=== PATIENT | male | born 1995 | race Caucasian/White ===

== ENCOUNTER 2018-12-06 07:37 | Emergency (ER) | payer OTHER ==
[2018-12-06 07:46] VITALS: BP 134/67
--- NOTE | 2018-12-06 07:56 | ED Physician Documentation ---
History of Present Illness - Stated complaint Stated Complaint: R EYE IRRITATION - Chief complaint Chief Complaint: Heent - History obtained from History obtained from: Patient - Additonal information Additional information: Patient is a previously healthy 23-year-old male who does not wear contacts or glasses presenting with right eye irritation over the past several hours. Patient believes it may have started last night with mild purulent drainage from the right eye, but worsened this morning with matting, continued drainage, and slight redness to the eye. Patient denies any significant pain or itchiness, as well as any changes to vision. Patient has no complaints to the left eye. Patient also denies any ear, nose, or throat complaints, although he states he has recently been getting over a cold. Patient denies any other GI complaints.No other improving or worsening factors noted. Review of Systems Constitutional: denies: Fever Eyes: reports: Discharge, Irritation. denies: Loss of vision PD PAST MEDICAL HISTORY - Past Medical History Past Medical History: No - Past Surgical History Past Surgical History: No - Present Medications Home Medications: Ambulatory Orders Medication Instructions Recorded Confirmed Polymyxin B Sulf/Trimethoprim 1 - 2 drops OP Q6HR 7 Days drops 12/06/18 [Polymyxin B-Tmp Eye Drops] - Allergies Allergies/Adverse Reactions: Allergies Allergy/AdvReac Type Severity Reaction Status Date / Time No Known Drug Allergies Allergy Verified 12/06/18 07:46 - Social History Does the pt smoke?: No Smoking Status: Never smoker PD ED PE NORMAL - Vitals Vital signs reviewed: Yes - General General: Alert and oriented X 3, No acute distress, Well developed/nourished - HEENT HEENT: Atraumatic, PERRL (No nystagmus. Gross visual acuity intact. Left eye unremarkable. Right eye has extremely mild conjunctival injection mostly in the lateral aspect with no drainage present. No swelling or other changes to periorbital area or eyelids.), EOMI, Moist mucous membranes - Respiratory Respiratory: No respiratory distress - Derm Derm: Normal color, Warm and dry, No rash - Extremities Extremities: No deformity - Neuro Neuro: Alert and oriented X 3, No motor deficit, No sensory deficit - Psych Psych: Normal mood, Normal affect Results - Vitals Vitals: Vital Signs - 24 hr 12/06/18 07:44 Temperature 36.7 C Heart Rate 62 Respiratory 18 Rate Blood Pressure 134/67 H O2 Saturation 96 Oxygen O2 Source Room air PD MEDICAL DECISION MAKING - ED course Complexity details: considered differential, d/w patient, d/w family ED course: Patient presenting with extremely mild evidence of conjunctivitis to the right eye. Patient reports that he was recently getting over cold symptoms or URI and likely feel this could have been viral causing today's conjunctivitis. Spoke with patient about viral versus bacterial etiologies and agreed to treat with antibiotics in case of bacterial component. Do not find evidence of other systemic infection, localized infection or other concerns on exam. Also discussed other hygiene recommendations, supportive cares, return precautions and follow-up. Patient voiced understanding and is comfortable with discharge plan. Departure - Departure Disposition: 01 Home, Self Care Clinical Impression: Conjunctivitis Qualifiers: Conjunctivitis type: acute Acute conjunctivitis type: unspecified Laterality: right Qualified Code(s): H10.31 - Unspecified acute conjunctivitis, right eye Condition: Good Instructions: ED Conjunctivitis Nonspecific Follow-Up: MARSHA BALL MD [Primary Care Provider] - Within 3 Days Prescriptions: Polymyxin B Sulf/Trimethoprim [Polymyxin B-Tmp Eye Drops] 1 - 2 drops OP Q6HR 7 Days drops Comments: Please use eyedrops as prescribed to treat conjunctivitis. Practice good hand hygiene as well as keeping eye clean. Recommend changing towels, linens, and others to avoid reinfection. Follow-up with primary care physician next 2 to 3 days and return to ED sooner if experience worsening symptoms or other concerns.
== END 2018-12-06 08:12 | disposition home or self-care (01) ==
LOC: ED 07:37
DX: H10.31 Unspecified acute conjunctivitis, right eye (principal)
CPT/HCPCS: 99283

== ENCOUNTER 2021-01-17 09:11 | Outpatient (CLI) | payer OTHER ==
--- NOTE | 2021-01-17 10:24 | SLEEP CARE CONSULTATION ---
Information from patient questionnaire entered by Gail Oden. I have reviewed and concur with the information entered by Gail Oden. This document represents the service I personally performed and the decisions made by me, Joy Delgado ARNP. History of Present Illness Service Date and Time: 01/17/2021 0911 Reason for Visit: New patient Chief Complaint: reports: Unrefreshed sleep, Snoring, Excessive daytime sleepiness, Observed pauses in breathing Date of Onset: 4 years Usual bedtime: 0930 Time it takes to fall asleep: 15 - 30 min Snores at night: Yes Observed to quit breathing while asleep: Yes Sleeps alone due to snoring: No Number of times waking at night: 1 - 2 Reasons for waking at night: reports: Other (Unknown reason) Toss, Turn, or Twitch while sleeping: Yes Recalls having dreams: No Usually gets out of bed at: 0505 Feels refreshed in the morning: No Morning headache: No Sleepy or fatigued during the day: Yes Ever fallen asleep while driving: No (no drowsy driving) Takes day naps: Yes (usually on the weekend) Dreams during day naps: No Prior sleep studies: No Additional HPI information: I had the pleasure of seeing ELIZA PANIAGUA today regarding the possibility of him having a sleep disorder. His current complaints are excessive daytime sleepiness, observed pauses in breathing, snoring and unrefreshed sleep. He states his will wake him up because he has been snoring really loud and when he has stopped breathing at night. He states that his snoring has improved with the purchase of a new mattress. He decided to talked to his mother about sleep apnea because she has been diagnosed with sleep apnea and is on a Pap machine. His grandmother also has sleep apnea and is being treated. He states that he wakes up not feeing refreshed most mornings and is tired throughout the day. He will get a full night's sleep and still fall asleep after sitting down at home or at work before lunch. He denies any drowsy driving or accidents. He supplements with caffeine to keep awake during the day. He denies morning headaches. 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 Patient is and lives in [place]. Have you smoked in the past 12 months: No (Vape 3x a day) Alcohol use: Yes Alcohol amount and frequency: 1 - 2 beers on weekends Caffeine use: Yes Caffeine amount and frequency: 1 cup coffee daily Family History Family history of sleep disordered breathing: Yes Family Hx Sleep Apnea: Mother: Snoring, Sleep apnea - Treated, Grandparent: Snoring, Sleep apnea - Treated Allergies and Home Medications Drug allergies reviewed: Yes (NKDA) Home medication list reviewed: Yes Allergy and home medication list: Clobetasol cream for eczema Review of Systems Cardiovascular: denies: high blood pressure Gastrointestinal: reports: heartburn Neurological: reports: headaches. denies: head trauma Psychiatric: denies: anxiety, depression, mood disorder Ear/Nose/Throat: reports: wisdom teeth removed (removed 2 of them). denies: injury to nose, tonsillectomy Endocrine: denies: thyroid disease Immunologic: reports: allergies to food or environment (cats, seasonal allergies) Physical Exam Blood Pressure: 118/78 Cuff size: long Heart Rate: 53 O2 Saturation: 99 Height: 6 ft 2 in Weight: 233 lb 3.2 oz Body Mass Index: 29.9 BMI Classification: Overweight Neck circumference: 16.6 (inches) Nostrils: patent to airflow Mouth and throat: narrow oropharynx Soft palate: long Hard palate: arched Uvula: normal Uvula visualization: 50% Mallampati Class II Tongue: enlarged in size with teeth nur on lateral edges Tonsils: 1+ Neck: normal w/o lymphadenopathy or thyromegaly Heart: regular rate and rhythm Lungs: clear bilaterally Impression and Plan 1. Suspected Obstructive Sleep Apnea-Hypopnea Syndrome, as suggested by a history of loud and irregular snoring, observed cessation of breath while asleep, unrefreshed sleep, cognitive impairment, and excessive daytime sleepiness. Narrow oropharynx and obesity are common predisposing factors for obstructive sleep apnea-hypopnea syndrome. I recommend proceeding to polysomnography to confirm the diagnosis and to assess severity. If the patient has significant sleep disordered breathing, a manual CPAP titration study will also be performed to find the optimal treatment pressure. I informed the patient of what the sleep studies involve and after some discussion, obtained agreement to proceed. The pathophysiology of obstructive sleep apnea-hypopnea syndrome was discussed with the patient and health risks of cardiovascular and cerebrovascu lar disease if not treated. AAS brochure for obstructive sleep apnea-hypopnea syndrome given and reviewed. Risks of drowsy driving discussed in detail and patient advised to avoid long distance driving and to caul fat puller at the first sign of drowsiness. Patient agreed to plan. * Schedule polysomnography +- manual CPAP titration study and return in 1-2 weeks after the study to discuss result and initiate therapy. * Avoid long distance driving or driving when feeling sleepy. * Avoid alcohol, sedative and muscle relaxant around bedtime. * Attempt to lose weight. * Review instructions provided by trained office staff on how to prepare for the sleep study. * Return for follow-up after sleep study completed. Counseling Topics: Weight loss health impact Visit Type: In Office Time Spent with Patient (minutes): 30 Provider Statement: I spent 100% of the Face to Face Visit with the patient with greater than 50% spent counseling the patient and coordination of care.
[2021-01-17 10:25] VITALS: BP 118/78
== END 2021-01-17 09:12 | disposition home or self-care (01) ==
LOC: SC 09:11
PROVIDERS: ATTEND Nurse Practitioner Family
DX: R06.83 Snoring (principal); R06.81 Apnea, not elsewhere classified; G47.8 Other sleep disorders; R41.89 Other symptoms and signs involving cognitive functions and awareness; G47.10 Hypersomnia, unspecified
CPT/HCPCS: 99203; 99212

== ENCOUNTER 2021-01-26 13:50 | Outpatient (CLI) | payer OTHER | END 2021-01-26 13:51 | disposition home or self-care (01) | LOC: SC 13:50 | PROVIDERS: ATTEND Nurse Practitioner Family | DX: R06.83 Snoring (principal); G47.8 Other sleep disorders; G47.10 Hypersomnia, unspecified | CPT/HCPCS: 95806 ==

== ENCOUNTER 2021-02-06 14:26 | Outpatient (CLI) | payer OTHER ==
--- NOTE | 2021-02-06 14:44 | SLEEP CARE CONSULTATION ---
Information from patient questionnaire entered by Judit Castillo. I have reviewed and concur with the information entered by Judit Castillo. This document represents the service I personally performed and the decisions made by , Joy Delgado ARNP. History of Present Illness Service Date and Time: 02/06/20211425 Initial [place] Sleepiness Scale score: 20 (in 2020) Current [place] Sleepiness Scale score: 18 Additional HPI information: ELIZA PANIAGUA returns for follow up and results of the recently performed home sleep study. The patient was informed of the following findings: No significant sleep disordered breathing with an average AHI of 2.3 and jhony oxygen saturation of 93%. He did, however, have an elevated AHI of 5.9 during supine sleep. I explained the pathophysiology behind obstructive sleep apnea. Patient does not have sleep apnea and was advised how weight gain could increase the risk of developing sleep apnea in the future. I strongly encouraged the patient to lose weight. Patient does not have significant sleep disordered breathing but has elevated AHI in supine position so advised positional therapy. Methods to achieve positional management therapy were discussed; such as, positioning with pillows, wearing a T-shirt with tennis balls sewn into the back, Rematee shirt, Zzomba belt and Slumberbump belt. Patient has mild snoring. Snoring can be reduced by weight loss. Weight loss is best achieved with diet consult. Patient instructed to contact PCP for referral. Snoring can also be treated with an oral appliance from a dentist. Advised to check insurance coverage. In addition, an ENT evaluation can be do to see if other treatment is indicated. Patient counseled not drink alcohol less than 4 hours before bedtime as it can increase snoring and apnea. Patient was cautioned about risks of drowsy driving until sleepiness symptoms resolve. Sleep Study - Results Type of Sleep Study: Home sleep study Prior sleep studies: No Polysomnography/Home Sleep Study results: Physician Impression: The quality of the study is good. The length of the study is adequate (> 240 minutes). Please also see the tabulated and graphic data. 1. No significant sleep disordered breathing, with an AHI of 2.3/hr and jhony SaO2 of 93%. During the study, the patient had 17 apneas (17 obstructive, 0 central, 0 mixed) and 0 hypopneas. The longest episode lasted 42.5 seconds. The few respiratory events occurred almost exclusively during supine sleep (supine AHI was 5.9 and non-supine, 1.23). Allergies and Home Medications Home medication list reviewed: Yes (Clybetasol for eczema) Review of Systems Review of systems same as previous: Yes (no changes) Physical Exam Heart Rate: 68 O2 Saturation: 98 Height: 6 ft 2 in Weight: 225 lb Body Mass Index: 28.8 BMI Classification: Overweight Impression and Plan Snoring but no significant sleep disordered breathing. He does have a mildly elevated supine AHI of 5.9 and should avoid sleeping supine to reduce apneas. Patient voiced understanding. Patient advised that often weight loss will reduce snoring as well as apnea risk. An oral appliance can also be used for snoring. This would require a dental consultation. Patient cautioned not to use other online appliances as can cause bite issues. A list of accredited dentists in [facility] and one local dentist who makes oral appliances is available in office. Patient is advised to check if insurance will cover. An ENT consult can also be helpful to determine if any other treatment is an option. * Attempt to lose weight * Avoid supine sleep * Avoid alcohol consumption near bedtime * The patient is cautioned about driving until sleepiness is completely resolved. * Return as needed. Counseling Topics: Weight loss health impact Visit Type: In Office Time Spent with Patient (minutes): 13 Provider Statement: I spent 100% of the Face to Face Visit with the patient with greater than 50% spent counseling the patient and coordination of care.
== END 2021-02-06 14:27 | disposition home or self-care (01) ==
LOC: SC 14:26
PROVIDERS: ATTEND Nurse Practitioner Family
DX: R06.83 Snoring (principal); E66.3 Overweight; Z68.28 Body mass index [BMI] 28.0-28.9, adult
CPT/HCPCS: 99212

== ENCOUNTER 2022-12-13 06:20 | Day surgery (SDC) | payer OTHER ==
[2022-12-13] MEDS ORDERED: LACTATED RINGERS 1,000 ML IV ONE (06:23)
--- NOTE | 2022-12-13 06:57 | ANESTHESIA ---
Pre-Anesthesia VS, & Labs - Diagnosis irregular bowel habits - Procedure colonoscopy Vital Signs: Temp Pulse Resp BP Pulse Ox O2 Flow Rate 36.5 C 69 10 L 134/80 H 97 12/13/22 06:25 12/13/22 06:25 12/13/22 06:25 12/13/22 06:25 12/13/22 06:25 Height: 6 ft 2 in Weight (kg): 102 kg Body Mass Index: 28.8 BMI Classification: Overweight - NPO >8 hours - Lab Results Lab results reviewed: Yes Home Medications and Allergies Home Medications: Ambulatory Orders Atomoxetine HCl [Strattera] 1 cap PO DAILY 12/13/22 Fexofenadine [Dolly] 180 mg PO DAILY 12/13/22 Meloxicam 1 tab PO DAILY 12/13/22 Omeprazole 20 mg PO DAILY 12/13/22 Atomoxetine HCl [Strattera] 1 cap PO DAILY 12/13/22 Fexofenadine [Dolly] 180 mg PO DAILY 12/13/22 Meloxicam 1 tab PO DAILY 12/13/22 Omeprazole 20 mg PO DAILY 12/13/22 Allergies/Adverse Reactions: Allergies Allergy/AdvReac Type Severity Reaction Status Date / Time No Known Drug Allergies Allergy Verified 12/13/22 06:41 Anes History & Medical History - Anesthetic History Anesthesia Complications: reports: No previous complications Family history of Anesthesia Complications: Denies Family history of Malignant Hyperthermia: Denies - Medical History Cardiovascular: reports: None Pulmonary: reports: None Gastrointestinal: reports: GERD Urinary: reports: None Musculoskeletal: reports: None Endocrine/Autoimmune: reports: None Skin: reports: None Smoking Status: Current every day smoker (vape) Psychosocial: reports: Depression Exam General: Alert, Oriented x3, Cooperative Dental: WNL Mouth Opening: Greater than 4 Fingerbreadths Neck Mobility: Normal Mallampati classification: I Thyromental Distance: 4-6 cm Respiratory: Lungs clear Cardiovascular: Regular rate Plan Anesthesia Type: MAC Consent for Procedure(s) Verified and Reviewed: Yes Code Status: Attempt Resuscitation ASA classification: 2-Mild systemic disease Is this case an emergency?: No
--- NOTE | 2022-12-13 07:19 | HISTORY & PHYSICAL EXAMINATION ---
Chief Complaint - Chief Complaint Chief Complaint: here for colonoscopy History of Present Illness - History Obtained From Records Reviewed: yes History obtained from: pt Exam Limitations: none - History of Present Illness HPI Comment/Other: irregular bowel habits with frequent bms and occasional blood for months. History - Past Medical History Cardiovascular: reports: None Respiratory: reports: None Endocrine/Autoimmune: reports: None GI: reports: GERD : reports: None HEENT: reports: None Psych: reports: None Musculoskeletal: reports: None Derm: reports: None MRSA Hx?: No Meds/Allgy - Home Medications Home Medications: Ambulatory Orders Medication Instructions Recorded Confirmed Atomoxetine HCl [Strattera] 1 cap PO DAILY 12/13/22 12/13/22 Fexofenadine [Dolly] 180 mg PO DAILY 12/13/22 12/13/22 Meloxicam 1 tab PO DAILY 12/13/22 12/13/22 Omeprazole 20 mg PO DAILY 12/13/22 12/13/22 - Allergies Allergies/Adverse Reactions: Allergies Allergy/AdvReac Type Severity Reaction Status Date / Time No Known Drug Allergies Allergy Verified 12/13/22 06:41 Review of Systems - Other Findings Other Findings: 10 pt ros as above otherwise unremarkable Exam - Vital Signs Vital Signs: Vital Signs x48h Temp Pulse Resp BP Pulse Ox 12/13/22 06:25 36.5 C 69 10 L 134/80 H 97 - Physical Exam General Appearance: positive: No acute distress, Alert Eyes Bilateral: positive: PERRL, EOMI ENT: positive: No signs of dehydration Neck: positive: No JVD, Trachea midline Respiratory: positive: No respiratory distress Cardiovascular: positive: Regular rate & rhythm Abdomen: positive: No distention Neurologic/Psychiatric: positive: Oriented x3 Conclusion/Plan - Problem List (1) Irregular bowel habits Conclusion/Plan: plan colonoscopy with biopsies. rule out colitis parq held and consent obtained - Lab Results Lab results reviewed: Yes
[2022-12-13] MEDS ORDERED: PROPOFOL 500 MG/50 ML 500 MG/50 ML VIAL ONE (07:51)
[2022-12-13] MEDS ORDERED: LACTATED RINGERS 450 ML IV ONE (07:54)
[2022-12-13 08:24] VITALS: BP 107/67
--- NOTE | 2022-12-13 08:51 | ANESTHESIA POST OP EVALUATION ---
Anesthesia Post Eval - Post Anesthesia Eval Vitals: Last Vital Signs Temp 36.2 C L 12/13/22 08:18 Pulse 80 12/13/22 08:18 Resp 23 12/13/22 08:18 BP 107/67 12/13/22 08:18 Pulse Ox 100 12/13/22 08:18 O2 Flow Rate CV Function Including HR & BP: Stable Pain Control: Satisfactory Nausea & Vomiting: Negative Mental Status: Baseline Respiratory Status: Airway Patent Hydration Status: Satisfactory Anesthesia Complications: None
== END 2022-12-13 06:21 | disposition home or self-care (01) ==
LOC: SDS 06:20
PROVIDERS: ATTEND Surgery
PROC: 0DBL8ZX Excision of Transverse Colon, Via Natural or Artificial Opening Endoscopic, Diagnostic (ICD-10-PCS; 2022-12-13)
PROC: 0DBP8ZX Excision of Rectum, Via Natural or Artificial Opening Endoscopic, Diagnostic (ICD-10-PCS; 2022-12-13)
PROC: 0DBF8ZX Excision of Right Large Intestine, Via Natural or Artificial Opening Endoscopic, Diagnostic (ICD-10-PCS; 2022-12-13)
PROC: 0DBG8ZX Excision of Left Large Intestine, Via Natural or Artificial Opening Endoscopic, Diagnostic (ICD-10-PCS; 2022-12-13)
PROC: 0DBB8ZX Excision of Ileum, Via Natural or Artificial Opening Endoscopic, Diagnostic (ICD-10-PCS; principal; 2022-12-13 07:30)
DX: R19.4 Change in bowel habit (principal); K92.1 Melena; K64.9 Unspecified hemorrhoids; F17.290 Nicotine dependence, other tobacco product, uncomplicated
CPT/HCPCS: 45380; J7120

== ENCOUNTER 2023-02-11 16:32 | Emergency (ER) | payer OTHER ==
[2023-02-11 16:42] VITALS: BP 123/62; O2SAT 98
--- NOTE | 2023-02-11 17:25 | ED Physician Documentation ---
PD HPI WOUND RECHECK - Stated complaint Stated Complaint: SPIDER BITE - Chief complaint Chief Complaint: Wound - Histroy obtained from History obtained from: Patient (He noticed what he thought was some sort of bite on the inferior right buttock last night. No fevers or chills. No history of MRSA.) PD PAST MEDICAL HISTORY - Past Medical History Cardiovascular: None Respiratory: None Endocrine/Autoimmune: None GI: GERD : None HEENT: None Psych: None Musculoskeletal: None Derm: None - Past Surgical History Past Surgical History: No - Present Medications Home Medications: Ambulatory Orders Medication Instructions Recorded Confirmed Atomoxetine HCl [Strattera] 1 cap PO DAILY 12/13/22 12/13/22 Fexofenadine [Dolly] 180 mg PO DAILY 12/13/22 12/13/22 Meloxicam 1 tab PO DAILY 12/13/22 12/13/22 Omeprazole 20 mg PO DAILY 12/13/22 12/13/22 cephALEXin [Keflex] 500 mg PO Q6H #28 cap 02/11/23 - Allergies Allergies/Adverse Reactions: Allergies Allergy/AdvReac Type Severity Reaction Status Date / Time No Known Drug Allergies Allergy Verified 02/11/23 16:38 - Social History Does the pt smoke?: No Smoking Status: Current every day smoker (vape) PD ED PE NORMAL - Vitals Vital signs reviewed: Yes - General General: Alert and oriented X 3, No acute distress - Extremities Extremities: Other (Very small pointed abscess/pimple on the inferior right buttock with mild surrounding cellulitis.) - Neuro Neuro: Alert and oriented X 3, Normal speech Results - Vitals Vitals: Vital Signs - 24 hr 02/11/23 16:38 Temperature 36.5 C Heart Rate 76 Respiratory 16 Rate Blood Pressure 123/62 O2 Saturation 98 Oxygen O2 Source Room air Procedures - General procedure General procedure: The small pointed abscess inferior to the right buttock was opened up with an 18-gauge needle after ChloraPrep. A culture was obtained and bandage was placed. He tolerated this well. Departure - Departure Disposition: 01 Home, Self Care Clinical Impression: Abscess Condition: Good Record reviewed to determine appropriate education?: Yes Instructions: ED Abscess IandD Prescriptions: cephALEXin [Keflex] 500 mg PO Q6H #28 cap Comments: We are performing a wound culture, the results should be done in 48-72 hours. If antibiotic change is necessary we will call you. Return if worse in the meantime, especially if you develop increased pain, fevers, cannot keep down the medication. Otherwise follow-up with your physician in approximately 2-3 days. Forms: PCP List
== END 2023-02-11 17:45 | disposition home or self-care (01) ==
LOC: ED 16:32
DX: L02.31 Cutaneous abscess of buttock (principal); F17.290 Nicotine dependence, other tobacco product, uncomplicated; Z79.899 Other long term (current) drug therapy
CPT/HCPCS: 10060; 87070; 87205; 99283

== ENCOUNTER 2023-09-17 13:13 | Outpatient (CLI) | payer OTHER ==
--- NOTE | 2023-09-17 13:39 | Sleep Patient Instructions ---
Sleep Center Visit Summary - Patient Visit Information Reason for Visit: Annual Follow up - Patient Instructions Instructions Attached: Sleep Study Additional Instructions: You will be completing a sleep study, either an in-lab polysomnography (PSG) or home sleep study (HST). You will follow-up in the sleep care office after the sleep study is completed to hear the results and talk about therapy, if needed. You will be called by our office staff to schedule this appointment, but you may contact us with any questions. - Clinic Information Contact: Located within [facility] [address] [place] [id number] [email or web address] T: [phone]
--- NOTE | 2023-09-17 13:42 | SLEEP CARE CONSULTATION ---
Information from patient questionnaire entered by Talat Huang. I have reviewed and concur with the information entered by Talat Huang. This document represents the service I personally performed and the decisions made by me, Joy Delgado ARNP. History of Present Illness Service Date and Time: 09/17/2023 1313 Reason for follow up: annual ([id number]) Prior sleep studies: No Type of Sleep Study: Home sleep study HPI additional information: I had the pleasure of seeing ELIZA PANIAGUA today regarding the possibility of him having a sleep disorder. His current complaints are loud snoring, observed pauses in breathing, excessive daytime sleepiness and unrefreshed sleep. He feels that his snoring and daytime fatigue has worse since he was last seen here in 2020. The patient tells me that he normally goes to bed around 8:30 pm, and it takes him approximately 10-15 minutes to fall asleep. He has been told that he snores loudly and irregularly at night. He has been observed to stop breathing in his sleep. His bed partner has to sleep in another room due to the loudness of his snoring. He can recall waking up on the average of 1-2 times during the night. Most of the time he wakes up because of gasp for air and adjusting position. He has occasionally awakened for his own snoring, and having to gasp for air. There is a lot of tossing and turning in his sleep. Generally he can recall having dream s but it is rare. He usually wakes up at 0500 and does not feel refreshed. He usually does have a morning headache about a few times a month. During the day he complains of feeling sleepy and fatigued. He has never fallen asleep while driving nor has any accident due to sleepiness. He usually naps for couple hours on the weekends or 30-40 minutes at work. If he naps, upon falling asleep during the day he denies having vivid dreams. There is somniloquy (sleep talking) but no somnambulism (sleep walking). He reports having impaired concentration during the day. Sleep Study - Results Type of Sleep Study: Home sleep study Prior sleep studies: No Subjective Initial [place] Sleepiness Scale score: 20 (in 2020) Current [place] Sleepiness Scale score: 16 (09/17/23) Allergies and Home Medications Known drug allergies: No Drug allergies reviewed: Yes Home medication list reviewed: Yes (as listed) Allergy and home medication list: Allergies No Known Drug Allergies Allergy (Verified 02/11/23 16:38) Home Medications Medication Instructions Recorded Confirmed Last Taken Type Atomoxetine HCl [Strattera] 1 cap PO DAILY 12/13/22 09/17/23 12/12/22 History Meloxicam 1 tab PO DAILY 12/13/22 09/17/23 12/12/22 History Omeprazole 20 mg PO DAILY 12/13/22 09/17/23 12/12/22 History Sertraline [Zoloft] See Rx Instructions .ROUTE .COMPLEX 09/17/23 09/17/23 Unknown History Review of Systems Review of systems same as previous: No (lower back pain; GERD; anxiety; depression and ADHD) Physical Exam Vital signs obtained and entered by: TALAT Barksdale MA Blood Pressure: 130/76 (LEFT ARM) Cuff size: regular Heart Rate: 83 O2 Saturation: 98 Height: 6 ft 2 in Weight: 243 lb 9.6 oz Weight change since last visit: 18 lb gain Body Mass Index: 31.2 BMI Classification: Obese Impression and Plan 1. Suspected Obstructive Sleep Apnea-Hypopnea Syndrome, as suggested by a history of loud and irregular snoring, observed cessation of breath while asleep, gasping or choking in sleep, unrefreshed sleep, cognitive impairment, and excessive daytime sleepiness. I recommend proceeding to polysomnography to confirm the diagnosis and to assess severity. If the patient has significant sleep disordered breathing, a manual CPAP titration study will also be performed to find the optimal treatment pressure. I informed the patient of what the sleep studies involve and after some discussion, obtained agreement to proceed. The pathophysiology of obstructive sleep apnea-hypopnea syndrome was discussed with the patient and health risks of cardiovascular and cerebrovascular disease if not treated. Risks of drowsy driving discussed in detail and patient advised to avoid long distance driving and to tail puller at the first sign of drowsiness. Patient agreed to plan. * Schedule polysomnography * Avoid long distance driving or driving when feeling sleepy. * Avoid alcohol, sedative and muscle relaxant around bedtime. * Attempt to lose weight. * Review instructions provided by trained office staff on how to prepare for the sleep study. * Return for follow-up after sleep study completed. Counseling Topics: Weight loss health impact Follow up with Sleep Care in: other (follow up for sleep study results) Plan: PSG Visit Type: In Office Time Spent with Patient (minutes): 20 Provider Statement: I spent 100% of the Face to Face Visit with the patient with greater than 50% spent counseling the patient and coordination of care.
[2023-09-17 13:53] VITALS: BP 130/76; O2SAT 98
== END 2023-09-17 13:14 | disposition home or self-care (01) ==
LOC: SC 13:13
PROVIDERS: ATTEND Nurse Practitioner Family
DX: G47.33 Obstructive sleep apnea (adult) (pediatric) (principal); E66.9 Obesity, unspecified; Z68.31 Body mass index [BMI] 31.0-31.9, adult
CPT/HCPCS: 99212; 99213

== ENCOUNTER 2023-10-05 19:18 | Outpatient (CLI) | payer OTHER | END 2023-10-05 19:19 | disposition home or self-care (01) | LOC: SC 19:18 | PROVIDERS: ATTEND Nurse Practitioner Family | DX: G47.10 Hypersomnia, unspecified (principal); R06.83 Snoring; G47.8 Other sleep disorders; R41.89 Other symptoms and signs involving cognitive functions and awareness; R06.81 Apnea, not elsewhere classified | CPT/HCPCS: 95810 ==

== ENCOUNTER 2023-10-30 13:01 | Outpatient (CLI) | payer OTHER ==
--- NOTE | 2023-10-30 13:32 | Sleep Patient Instructions ---
Sleep Center Visit Summary - Patient Visit Information Reason for Visit: Sleep study follow up - Patient Instructions Instructions Attached: Sleep Study Home Monitor Additional Instructions: Your sleep study today was negative for significant sleep disordered breathing. However, because of your symptoms we are going to reorder an home sleep study for further information. You were found to have episodes of snoring. There are different ways to control snoring including weight loss, oral devices made by a dentist or surgical options through ENT specialist. You should not use oral devices that do not fit properly because they can affect your bite. You should also check insurance coverage of oral devices for snoring because they may not be cover well. You may obtain a referral to an ENT specialist through your primary provider. Follow-up after HST - Clinic Information Contact: [facility] [address] [place] [address] [email or web address] T: [phone]
--- NOTE | 2023-10-30 13:40 | SLEEP CARE CONSULTATION ---
Information from patient questionnaire entered by Cecille Huang. I have reviewed and concur with the information entered by Cecille Huang. This document represents the service I personally performed and the decisions made by , Joy Delgado ARNP. History of Present Illness Service Date and Time: 10/30/2023 1301 Initial [place] Sleepiness Scale score: 20 (in 2020) Current [place] Sleepiness Scale score: 17 (10/30/23) Additional HPI information: ELIZA PANIAGUA returns for follow up and results of the recently performed polysomnography. The patient was informed of the following findings: No significant sleep disordered breathing with an average AHI of 0.8 and jhony oxygen saturation of 90%. I explained the pathophysiology behind obstructive sleep apnea. Patient does not have sleep apnea and was advised how weight gain could increase the risk of developing sleep apnea in the future. I strongly encouraged the patient to lose weight. Patient has light to moderate snoring. Snoring can be reduced by weight loss. Weight loss is best achieved with diet consult. Patient instructed to contact PCP for referral. Snoring can also be treated with an oral appliance from a dentist. Advised to check insurance coverage. In addition, an ENT evaluation can be do to see if other treatment is indicated. Patient counseled not drink alcohol less than 4 hours before bedtime as it can increase snoring and apnea. Patient was cautioned about risks of drowsy driving until sleepiness symptoms resolve. Patient denies drowsy driving. Sleep Study - Results Type of Sleep Study: Polysomnography (COMPLETED 10/05/23) Prior sleep studies: No Polysomnography/Home Sleep Study results: IMPRESSION: The quality of the study is good. The patient had normal sleep efficiency. Except for mild sleep fragmentation, the sleep architecture was also normal. Respiratory monitoring showed no significant sleep disordered breathing (AHI = 0.8) or hypoxia (jhony oxygen saturation of 90%). The patient slept adequately in supine position (supine AHI = 0.4; non-supine = 2.00). Snore was light to moderate in intensity. There was no significant periodic leg movement of sleep. Cardiac rhythm was normal sinus rhythm without significant arrhythmia. No abnormal behavior (parasomnia) observed during the night. Allergies and Home Medications Known drug allergies: No Drug allergies reviewed: Yes Home medication list reviewed: Yes (Venlafaxine for anxiety/depression) Allergy and home medication list: Allergies No Known Drug Allergies Allergy (Verified 10/27/23 11:53) Review of Systems Review of systems same as previous: Yes (NO CHANGE) Physical Exam Vital signs obtained and entered by: CECILLE Barksdale MA Blood Pressure: 130/82 (LEFT ARM) Cuff size: long Heart Rate: 99 O2 Saturation: 99 Height: 6 ft 2 in Weight: 243 lb 9.6 oz Body Mass Index: 31.2 BMI Classification: Obese Impression and Plan 1. Suspected Obstructive Sleep Apnea-Hypopnea Syndrome, as suggested by a history of loud and irregular snoring, observed cessation of breath while asleep, gasping or choking in sleep, unrefreshed sleep, cognitive impairment, and excessive daytime sleepiness. Patient does not feel the sleep study was a good representation of his sleep. He felt he was awakened a lot when he normally would sleep solidly through the night. He states he can sleep for 7-8 hours or 9-10 hours and still feel tired. He has anxiety and depression but feels these are well controlled on his current medications. He does not feel his job or family situation is causing excessive stress. He has a regular get up and go to sleep schedule. He falls asleep quickly and does not remember waking up at night very often. His says she sees him stop breathing at night and snores loudly. I recommend proceeding to polysomnography/HST to see how he sleeps at home and to confirm the diagnosis and to assess severity. I obtained agreement t o proceed. The pathophysiology of obstructive sleep apnea-hypopnea syndrome was discussed with the patient and health risks of cardiovascular and cerebrovascular disease if not treated. Risks of drowsy driving discussed in detail and patient advised to avoid long distance driving and to bone char puller at the first sign of drowsiness. Patient agreed to plan. 2. Obesity, unspecified. Currently patients BMI is 31.2. Obesity increases the risk of apnea, CPAP pressure requirements and overall health risks especially cardiovascular and diabetes. Thus patient is advised to lose weight. * Schedule polysomnography/HST * Avoid long distance driving or driving when feeling sleepy. * Avoid alcohol, sedative and muscle relaxant around bedtime. * Attempt to lose weight. * Review instructions provided by trained office staff on how to prepare for the sleep study. * Return for follow-up after sleep study completed. Counseling Topics: Weight loss health impact Plan: HST and followup Visit Type: In Office Time Spent with Patient (minutes): 24 Provider Statement: I spent 100% of the Face to Face Visit with the patient with greater than 50% spent counseling the patient and coordination of care.
[2023-10-30 13:45] VITALS: BP 130/82; O2SAT 99
== END 2023-10-30 13:02 | disposition home or self-care (01) ==
LOC: SC 13:01
PROVIDERS: ATTEND Nurse Practitioner Family
DX: R06.83 Snoring (principal); R06.81 Apnea, not elsewhere classified; G47.8 Other sleep disorders; R41.89 Other symptoms and signs involving cognitive functions and awareness; G47.10 Hypersomnia, unspecified; E66.9 Obesity, unspecified; Z68.31 Body mass index [BMI] 31.0-31.9, adult
CPT/HCPCS: 99212; 99213

== ENCOUNTER 2023-11-27 08:46 | Outpatient (CLI) | payer OTHER | END 2023-11-27 08:47 | disposition home or self-care (01) | LOC: SC 08:46 | PROVIDERS: ATTEND Nurse Practitioner Family | DX: R06.83 Snoring (principal); G47.8 Other sleep disorders; R06.81 Apnea, not elsewhere classified; G47.10 Hypersomnia, unspecified; E66.9 Obesity, unspecified; Z68.31 Body mass index [BMI] 31.0-31.9, adult | CPT/HCPCS: 95806 ==

== ENCOUNTER 2023-12-05 13:57 | Outpatient (CLI) | payer OTHER ==
--- NOTE | 2023-12-05 14:19 | Sleep Patient Instructions ---
Sleep Center Visit Summary - Patient Visit Information Reason for Visit: Sleep study follow-up - Patient Instructions Instructions Attached: Snoring Tips Prevent Additional Instructions: Your sleep study today was negative for significant sleep disordered breathing. However, you did have elevated respiratory episodes when sleeping on your back. You should avoid sleeping on your back to control these respiratory episodes. You were found to have episodes of snoring. There are different ways to control snoring including weight loss, oral devices made by a dentist or surgical options through ENT specialist. You should not use oral devices that do not fit properly because they can affect your bite. You should also check insurance coverage of oral devices for snoring because they may not be cover well. You may obtain a referral to an ENT specialist through your primary provider. Follow-up as needed. - Clinic Information Contact: [facility] [address] [place] [address] [email or web address] T: [phone]
--- NOTE | 2023-12-05 14:21 | SLEEP CARE CONSULTATION ---
Information from patient questionnaire entered by Cecille Huang. I have reviewed and concur with the information entered by Cecille Huang. This document represents the service I personally performed and the decisions made by , Joy Delgado ARNP. History of Present Illness Service Date and Time: 12/05/2023 1357 Initial [place] Sleepiness Scale score: 20 (in 2020) Current [place] Sleepiness Scale score: 18 (12/05/23) Additional HPI information: ELIZA PANIAGUA returns for follow up and results of the recently performed home sleep study. The patient was informed of the following findings: No significant sleep disordered breathing with an average AHI of 4.9 and jhony oxygen saturation of 89%. I explained the pathophysiology behind obstructive sleep apnea. Patient does not have sleep apnea and was advised how weight gain could increase the risk of developing sleep apnea in the future. I strongly encouraged the patient to lose weight. Patient does not have significant sleep disordered breathing but has elevated AHI in supine position so advised positional therapy. Methods to achieve positional management therapy were discussed; such as, positioning with pillows, wearing a T-shirt with tennis balls sewn into the back, or commercially available products. Patient has mild snoring. Snoring can be reduced by weight loss. Weight loss is best achieved with diet consult. Patient instructed to contact PCP for referral. Snoring can also be treated with an oral appliance from a dentist. Advised to check insurance coverage. In addition, an ENT evaluation can be do to see if other treatment is indicated. Patient counseled not drink alcohol less than 4 hours before bedtime as it can increase snoring and apnea. Patient was cautioned about risks of drowsy driving until sleepiness symptoms resolve. Patient denies drowsy driving. Sleep Study - Results Type of Sleep Study: Home sleep study (COMPLETED 10/05/23 COMPLETED 11/27/23) Prior sleep studies: No Polysomnography/Home Sleep Study results: Physician Impression: The quality of the study is good. The length of the study is adequate (> 240 minutes). Please also see the tabulated and graphic data. 1. No significant sleep disordered breathing, with an AHI of 4.9/hr and jhony SaO2 of 89%. During the study, the patient had 31 apneas (31 obstructive, 0 central, 0 mixed) and 14 hypopneas. The longest episode lasted 72.5 seconds. The few respiratory events occurred almost exclusively during supine sleep (supine AHI was 6.2 and non-supine, 2.92). Allergies and Home Medications Known drug allergies: No Drug allergies reviewed: Yes Home medication list reviewed: Yes (no changes) Allergy and home medication list: Allergies No Known Drug Allergies Allergy (Verified 12/04/23 10:46) Review of Systems Review of systems same as previous: Yes (NO CHANGE) Physical Exam Vital signs obtained and entered by: CECILLE Barksdale MA Blood Pressure: 146/89 (RIGHT ARM) Cuff size: regular Heart Rate: 79 O2 Saturation: 99 Height: 6 ft 2 in Weight: 240 lb 12.8 oz Body Mass Index: 30.9 BMI Classification: Obese Impression and Plan 1. Snoring but no significant sleep disordered breathing. However, he had elevated supine AHI and should avoid sleeping supine. He voiced understanding. Patient advised that often weight loss will reduce snoring as well as apnea risk. An oral appliance can also be used for snoring. This would require a dental consultation. Patient cautioned not to use other online appliances as can cause bite issues. Patient is advised to check if insurance will cover. An ENT consult can also be helpful to determine if any other treatment is an option. 2. Obesity, unspecified. Currently patients BMI is 30.9. Obesity increases the risk of apnea, CPAP pressure requirements and overall health risks especially cardiovascular and diabetes. Thus patient is advised to lose weight. * Avoid sleeping supine * Attempt to lose weight * Avoid alcohol consumption near bedtime * The patient is cautioned about driving until sleepiness is completely resolved. * Return as needed for follow up. Counseling Topics: Sleeping position, Weight loss health impact Follow up with Sleep Care in: as needed Visit Type: In Office Time Spent with Patient (minutes): 11 Provider Statement: I spent 100% of the Face to Face Visit with the patient with greater than 50% spent counseling the patient and coordination of care.
[2023-12-05 14:26] VITALS: BP 146/89; O2SAT 99
== END 2023-12-05 13:58 | disposition home or self-care (01) ==
LOC: SC 13:57
PROVIDERS: ATTEND Nurse Practitioner Family
DX: R06.83 Snoring (principal); E66.9 Obesity, unspecified; Z68.30 Body mass index [BMI] 30.0-30.9, adult
CPT/HCPCS: 99212